=== PATIENT | female | born 1995 | race Caucasian/White ===

== ENCOUNTER → 2016-05-09 | Outpatient (CLI) | payer BC | END | disposition home or self-care (01) | LOC: C.LABSPEC 16:07 | PROVIDERS: ATTEND Obstetrics & Gynecology | DX: Z11.3 Encounter for screening for infections with a predominantly sexual mode of transmission (principal) ==

== ENCOUNTER → 2016-05-26 | Outpatient (CLI) | payer BC | END | disposition home or self-care (01) | LOC: C.PATHSPEC 10:09 | PROVIDERS: ATTEND Plastic Surgery | DX: D23.9 Other benign neoplasm of skin, unspecified (principal) ==

== ENCOUNTER 2017-01-17 12:57 | Emergency (ER) | payer BC ==
[~2017-01-17] VITALS: Ht 165.1 cm; Wt 58.7 kg
[2017-01-17 13:03] VITALS: TEMP 36.9; Ht 165.1 cm; Wt 58.7 kg
[2017-01-17] MEDS ORDERED: ONDANSETRON INJ 2 MG/ML 2 ML VIAL IV STA (13:31)
--- NOTE | 2017-01-17 14:01 | EMERGENCY ROOM VISIT NOTE ---
History First contact with patient: 13:11 Chief Complaint: FLANK PAIN Stated Complaint: L SIDE PAIN History of Present Illness The patient is a 21 year old female who presents to the Emergency Room with complaints of LLQ pain. -Pt says that the pain began about 1 hour ago. Pt says that the pain came on suddenly while lying in bed, beginning as a dull ache pain, 5/10 intensity -Pt says that the pain has since migrated to her suprapubic/pelvic region -Pt describes nausea and vomiting associated with the pain -Pt denies fevers and is afebrile in the ED today -Pt says that she has not had any burning with urination, but she does describe increased urgency since the pain began -Pt also remarks that her urine has been darker, but no brunilda blood -Pt denies any lesions or discharge from her vagina -Pt is sexually active with two partners over the past year. Pt has no concerns in regards to sexually transmitted diseases -Pt is currently on the depot shot, describes withdraw bleeding currently. Pt says that this is normal prior to receiving her next injection. -Pt last saw a access clerk in May and describes a normal pap smear. -Pt denies diarrhea or changes in bowel movements. No blood in her stool Review of Systems see below Constitutional: No fever, No chills, No sweats Respiratory: No cough, No sputum, No wheezing Cardiovascular: No chest pain, No edema, No palpitations Abdomen: + nausea, + vomiting, No pain, No diarrhea, No GI bleeding Genitourinary - Female: + urinary urgency, + vaginal bleeding, No dysuria, No urinary frequency, No urinary incontinence, No urinary retention, No hematuria Past Medical/Surgical History Medical Problems: (1) POTS (postural orthostatic tachycardia syndrome) Social History Smoking Status: Never Smoker Alcohol Use: none Drug Use: none Marital Status: single Housing Status: lives with family Occupation Status: student Current/Historical Medications No Active Prescriptions or Reported Meds Physical Exam Vital Signs Date Time Temp Pulse Resp B/P (MAP) Pulse Ox O2 Delivery O2 Flow Rate FiO2 01/17/17 16:38 62 16 124/76 98 Room Air 01/17/17 15:00 72 16 127/85 98 Room Air 01/17/17 13:03 36.9 67 16 113/71 98 Room Air Physical Exam see below General Appearance: WD/WN, no apparent distress Head: atraumatic Respiratory/Chest: chest non-tender, lungs clear, normal breath sounds, no respiratory distress Cardiovascular: regular rate, rhythm, no edema, no gallop, no JVD, no murmur Abdomen / GI: normal bowel sounds, soft, no organomegaly, no pulsatile mass , + pertinent finding (pt has suprapubic tenderness with deep and light palpation ) Genitourinary - Female: external genitalia normal, + pertinent finding ( Speculum exam showed cervical erythema/inflammation, scant blood, stringy yellowish discharge. ) Back: normal inspection, no CVA tenderness Medical Decision & Procedures ER Provider Diagnostic Interpretation: TRANSVAG-FEMALE PELVIS HISTORY: 21 years-old Female LLQ pain acute left lower quadrant abdominal pain COMPARISON: None available TECHNIQUE: Multiple real-time sonography images of the deep pelvic structures were obtained transabdominally and transvaginally assessing grayscale appearance, color and spectral flow FINDINGS: TRANSABDOMINAL: Endometrium measures 0.1 cm. Uterus measures 6.0 x 2.6 x 3.5 cm. Right ovary measures 3.0 x 3.2 x 1.4 cm with arterial inflow documented. Hypoechoic lesion of the right ovary is seen, 1.1 x 0.8 x 1.4 cm suggesting follicle. Left ovary measures 2.5 x 1.8 x 2.2 cm. Hypoechoic lesion of the left ovary is seen, 1.5 x 0.8 x 1.2 cm compatible with follicle. Arterial inflow documented within the left ovary. TRANSVAGINAL: Uterus measures 6.9 x 2.3 x 3.9 cm and is unremarkable. Endometrium measures 0.2 cm. No myometrial mass lesions identified. The right ovary measures 2.3 x 1.3 x 2.0 cm demonstrating arterial inflow. No right ovarian mass lesions identified. Follicles are noted. Left ovary measures 3.6 x 1.6 x 2.1 cm and is also within normal limits with follicles and arterial inflow documented. No adnexal mass lesions identified. There is no significant free pelvic fluid. IMPRESSION: 1. Unremarkable sonographic appearance of the bilateral ovaries without evidence of torsion or mass. 2. Normal sonographic appearance of the uterus and endometrium. The above report was generated using voice recognition software. It may contain grammatical, syntax or spelling errors. Electronically signed by: Tom Chirinos M.D. 01/17/2017 4:25 PM Dictated Date/Time: 01/17/2017 4:22 PM Laboratory Results 01/17/17 14:16 Red Blood Count 4.48, Mean Corpuscular Volume 88.2, Mean Corpuscular Hemoglobin 31.5, Mean Corpuscular Hemoglobin Concent 35.7, Mean Platelet Volume 11.2, Neutrophils (%) (Auto) 81.2, Lymphocytes (%) (Auto) 13.3, Monocytes (%) (Auto) 4.6, Eosinophils (%) (Auto) 0.5, Basophils (%) (Auto) 0.2, Neutrophils # (Auto) 6.53, Lymphocytes # (Auto) 1.07, Monocytes # (Auto) 0.37, Eosinophils # (Auto) 0.04, Basophils # (Auto) 0.02 01/17/17 14:16 Test 01/17/17 13:31 01/17/17 13:50 01/17/17 14:16 Urine Test NEG (NEG) Urine Color DK YELLOW Urine Appearance CLOUDY (CLEAR) Urine pH 5.0 (4.5-7.5) Urine Specific [place] 1.026 (1.000-1.030) Urine Protein 1+ (NEG) Urine Glucose (UA) NEG (NEG) Urine Ketones TRACE (NEG) Urine Occult Blood 3+ (NEG) Urine Nitrite NEG (NEG) Urine Bilirubin NEG (NEG) Urine Urobilinogen NEG (NEG) Urine Leukocyte Esterase TRACE (NEG) Urine WBC (Auto) 1-5 /hpf (0-5) Urine RBC (Auto) >30 /hpf (0-4) Urine Hyaline Casts (Auto) 5-10 /lpf (0-5) Urine Epithelial Cells (Auto) >30 /lpf (0-5) Urine Bacteria (Auto) NEG (NEG) White Blood Count 8.05 K/uL (4.8-10.8) Red Blood Count 4.48 M/uL (4.2-5.4) Hemoglobin 14.1 g/dL (12.0-16.0) Hematocrit 39.5 % (37-47) Mean Corpuscular Volume 88.2 fL (80-100) Mean Corpuscular Hemoglobin 31.5 pg (25-34) Mean Corpuscular Hemoglobin Concent 35.7 g/dl (32-36) Platelet Count 228 K/uL (130-400) Mean Platelet Volume 11.2 fL (7.4-10.4) Neutrophils (%) (Auto) 81.2 % Lymphocytes (%) (Auto) 13.3 % Monocytes (%) (Auto) 4.6 % Eosinophils (%) (Auto) 0.5 % Basophils (%) (Auto) 0.2 % Neutrophils # (Auto) 6.53 K/uL (1.4-6.5) Lymphocytes # (Auto) 1.07 K/uL (1.2-3.4) Monocytes # (Auto) 0.37 K/uL (0.11-0.59) Eosinophils # (Auto) 0.04 K/uL (0-0.5) Basophils # (Auto) 0.02 K/uL (0-0.2) RDW Standard Deviation 41.0 fL (36.4-46.3) RDW Coefficient of Variation 12.8 % (11.5-14.5) Immature Granulocyte % (Auto) 0.2 % Immature Granulocyte # (Auto) 0.02 K/uL (0.00-0.02) Anion Gap 10.0 mmol/L (3-11) Est Creatinine Clear Calc Drug Dose 89.7 ml/min Estimated GFR () 106.7 Estimated GFR (Non- 92.0 BUN/Creatinine Ratio 19.1 (10-20) Calcium Level 9.4 mg/dl (8.5-10.1) Total Bilirubin 1.1 mg/dl (0.2-1) Direct Bilirubin 0.2 mg/dl (0-0.2) Aspartate Amino Transf (AST/SGOT) 13 U/L (15-37) Alanine Aminotransferase (ALT/SGPT) 17 U/L (12-78) Alkaline Phosphatase 58 U/L (45-117) Total Protein 8.1 gm/dl (6.4-8.2) Albumin 4.6 gm/dl (3.4-5.0) Lipase 117 U/L (73-393) Medications Administered Medications (Trade) Dose Ordered Sig/Yaniv Route Start Time Stop Time Status Last Admin Dose Admin Ceftriaxone Sodium (Rocephin Im) 250 mg NOW ONCE IM 01/17/17 17:00 01/17/17 17:01 DC 01/17/17 17:07 250 MG Azithromycin (Zithromax Tab) 1,000 mg NOW ONCE PO 01/17/17 17:00 01/17/17 17:01 DC 01/17/17 17:07 1,000 MG ED Course 1415 History and physical performed 1430 Labs ordered for the patient. Pt refused antiemetic medications 1445 reaccessed patient, lab having trouble drawing blood 1515 bimanual exam and speculum exam performed 1534 pelvic USG ordered 1600 evaluated pt's USG, no abnormalities Medical Decision 21 female LLQ pain migrating to the suprapubic region. Considering the following differential: UTI, cystitis, pyelonephritis, nephrolithiasis, ovarian cyst, ovarian torsion, STI-vaginitis/cervicitis/PID, TOA Pt had normal CBC, BMP and lipase. UA showed >20 RBC's and trace LE. Speculum exam showed cervical erythema/inflammation, scant blood, stringy yellowish discharge. Bimanual exam provoked moderate tenderness and discomfort of the left adnexa. Because of tenderness elicited on exam, a pelvic USG was ordered. Pelvic USG dis not demonstrate signs of torsion or mass and was otherwise unremarkable. Based on exam, treating patient empirically for cervicitis: 1 g of Azithromycin PO, 250mg Ceftriaxone IM. Discussed results and findings with patient and discussed with patient to follow up closely with their PCP and access clerk. Impression Primary Impression: Cervicitis Departure Information Dispostion Home / Self-Care Condition GOOD Prescriptions No Active Prescriptions or Reported Meds Referrals No Doctor, Assigned (PCP) Patient Instructions [facility] Additional Instructions You came into the emergency department with left lower abdominal pain and pelvic pain. We did some labs and imaging that we determined to be normal. On physical exam, you were found to have inflammation of your cervix. With this, we decided to treat you for cervicitis, an infection of cervix. In the emergency room, we gave you 1 gram tablet of Azithromycin and 250mg injection of ceftriaxone. No other antibiotic treatment is needed at this time. We advise you to follow up with your primary care physician in the next week. If you develop fever or worsening abdominal pain, please follow up sooner.
[2017-01-17 14:11] LABS: MANUAL MICROSCOPIC REQUIRED? NO; REVIEW REQ? NO; URINE APPEARANCE CLOUDY (CLEAR); URINE COLOR DK YELLOW; URINE EPITHELIAL CELL AUTO >30 /lpf (0-5); URINE NITRITE NEG (NEG); URINE SPECIFIC GRAVITY 1.026 (1.000-1.030); UROBILINOGEN NEG (NEG)
[2017-01-17 14:13] LABS: URINE BILIRUBIN NEG (NEG)
[2017-01-17 14:29] LABS: BASO % 0.2 %; BASO ABS # 0.02 K/uL (0-0.2); COMPLETE YES; EOS % 0.5 %; HEMATOCRIT 39.5 % (37-47); IG% 0.2 %; LYMPH % 13.3 %; LYMPH ABS # 1.07 K/uL (1.2-3.4); MEAN CELL VOLUME 88.2 fL (80-100); MEAN CORPUSCULAR HEMOGLOBIN 31.5 pg (25-34); MEAN CORPUSCULAR HGB CONC 35.7 g/dl (32-36); MEAN PLATELET VOLUME 11.2 fL (7.4-10.4); MONO % 4.6 %; NEUT % 81.2 %; PLATELET COUNT 228 K/uL (130-400); RED BLOOD COUNT 4.48 M/uL (4.2-5.4); WHITE BLOOD COUNT 8.05 K/uL (4.8-10.8)
[2017-01-17 14:50] LABS: BUN/CREATININE RATIO 19.1 (10-20); CALCIUM 9.4 mg/dl (8.5-10.1); CREATININE 0.9 mg/dl (0.60-1.20); POTASSIUM 3.8 mmol/L (3.5-5.1)
[2017-01-17 15:29] LABS: PREG INTERNAL NEGATIVE QC NEG CLEAR BACKGROUND; PREG INTERNAL POSITIVE QC POS CONTROL LINE
--- NOTE | 2017-01-17 16:03 | EMERGENCY ROOM VISIT NOTE ---
ED Visit Note First contact with patient: 13:07 The patient was seen and examined with Dr. Wagner, resident physician. We discussed the case and treatments ordered, reviewed the results, and determine the disposition. Please refer to the resident's note for additional details. I have been directly involved with the management and disposition as well as independently evaluated the patient as documented in this note.\ Patient w/ LLQ/pelvic pain, upon assessment had resolved. No PMHx, no recent change in sexual partners. Recent normal BM. No urinary symptoms. Completed pelvic exam, noted redness/inflammed cervix w/ string-like yellow discharge w/ scant blood. Os closed. Neg CMT, no R adnexal TTP, mild L adnexal TTP. Trx'ed for cervicitis and had pelvic US completed. Neg for torsion, TOA, or cysts/ fibroids. Patient WBC WNL. AFVSS. UA w/ blood likely 2/2 to menstrual period. No urine bacteria noted. Deemed appropriate for outpatient f/u. Given rocephin and azithro prior to departure. D/c'ed to home.
--- NOTE | 2017-01-17 16:27 | DIAGNOSTIC IMAGING REPORT ---
TRANSVAG-FEMALE PELVIS HISTORY: 21 years-old Female LLQ pain acute left lower quadrant abdominal pain COMPARISON: None available TECHNIQUE: Multiple real-time sonography images of the deep pelvic structures were obtained transabdominally and transvaginally assessing grayscale appearance, color and spectral flow FINDINGS: TRANSABDOMINAL: Endometrium measures 0.1 cm. Uterus measures 6.0 x 2.6 x 3.5 cm. Right ovary measures 3.0 x 3.2 x 1.4 cm with arterial inflow documented. Hypoechoic lesion of the right ovary is seen, 1.1 x 0.8 x 1.4 cm suggesting follicle. Left ovary measures 2.5 x 1.8 x 2.2 cm. Hypoechoic lesion of the left ovary is seen, 1.5 x 0.8 x 1.2 cm compatible with follicle. Arterial inflow documented within the left ovary. TRANSVAGINAL: Uterus measures 6.9 x 2.3 x 3.9 cm and is unremarkable. Endometrium measures 0.2 cm. No myometrial mass lesions identified. The right ovary measures 2.3 x 1.3 x 2.0 cm demonstrating arterial inflow. No right ovarian mass lesions identified. Follicles are noted. Left ovary measures 3.6 x 1.6 x 2.1 cm and is also within normal limits with follicles and arterial inflow documented. No adnexal mass lesions identified. There is no significant free pelvic fluid. IMPRESSION: 1. Unremarkable sonographic appearance of the bilateral ovaries without evidence of torsion or mass. 2. Normal sonographic appearance of the uterus and endometrium. The above report was generated using voice recognition software. It may contain grammatical, syntax or spelling errors. Electronically signed by: Tom Chirinos M.D. 01/17/2017 4:25 PM Dictated Date/Time: 01/17/2017 4:22 PM
[2017-01-17 16:38] VITALS: BP 124/76; PULSE 62; O2SAT 98
[2017-01-17] MEDS ORDERED: CEFTRIAXONE SOD 350MG/ML 1 GM VIAL IM ONE (17:00)
[2017-01-17] MEDS ORDERED: AZITHROMYCIN 250 MG TAB PO ONE (17:00)
== END 2017-01-17 17:38 | disposition home or self-care (01) ==
LOC: C.EDB 12:58 → C.EDA 17:38
DX: N72 Inflammatory disease of cervix uteri (principal); Z79.3 Long term (current) use of hormonal contraceptives

== ENCOUNTER → 2017-05-15 | Outpatient (CLI) | payer OTHER | END | disposition home or self-care (01) | LOC: C.LABSPEC 11:15 | PROVIDERS: ATTEND Obstetrics & Gynecology | DX: N93.9 Abnormal uterine and vaginal bleeding, unspecified (principal) ==

== ENCOUNTER 2021-07-20 04:57 | Inpatient (IN) ==
[2021-07-20] MEDS ORDERED: OXYTOCIN 30 UNITS/500 ML BAG IV PRN (09:24)
--- NOTE | 2021-07-20 09:27 | Labor Progress Brief Note ---
Date of Service July 20, 2021 Subjective Patient has been observed on L&D for several hours due to increasingly painful contractions. Assessment & Plan (1) Normal labor: Plan: Admit for labor. GBS neg. Epidural upon request. Physical Exam Genitourinary: /-2 Bulging intact bag FHT Cat 1 [place] Q2 Results & Data ([facility]) Vital Signs (Past 12 Hours) Vital Signs Temp Pulse Resp BP 07/20/21 07:02 69 123/85 07/20/21 07:00 97.9 F 20 07/20/21 05:33 97.9 F 18 07/20/21 05:16 77 122/78 Coding Level of Care Code None Diagnoses Normal labor O80; Z37.9
[2021-07-20] MEDS: LACTATED RINGER'S 1,000 ML IV PRN ×3 (09:41→14:48)
[2021-07-20 10:11] LABS: Hematocrit (blood only) 34.4 % (37-47); Hemoglobin 11.5 g/dL (12.0-16.0); Mean Corpuscular Hemoglobin 29.4 pg (25-34); Mean Corpuscular Hgb Conc 33.4 g/dL (32-36); Mean Platelet Volume 12.1 fL (7.4-10.4); Platelet Count 188 K/uL (130-400); RDW Coefficient of Variation 13.4 % (11.5-14.5); RDW Standard Deviation 43.3 fL (36.4-46.3); Red Blood Count 3.91 M/uL (4.2-5.4); White Blood Count 10.99 K/uL (4.8-10.8)
[2021-07-20] MEDS ORDERED: NALBUPHINE HCL INJ 10 MG/ML AMP IV PRN (10:42)
[2021-07-20] MEDS ORDERED: NALOXONE HCL 0.4 MG/1 ML VIAL/CARP IV PRN ×2 (10:42→17:16)
[2021-07-20] MEDS ORDERED: fentaNYL 2MCG/ML ROPIVACAINE 1.25MG/ML 100 ML BAG EPI PRN (10:42)
[2021-07-20] MEDS ORDERED: NALOXONE HCL 1 MG in SODIUM CHLORIDE 0.9% 1000ML 1,000 ML IV PRN ×2 (10:42→17:16)
[2021-07-20] MEDS ORDERED: ePHEDrine sulfate 50 MG/ML AMP IV PRN ×2 (10:42→17:16)
[2021-07-20] MEDS ORDERED: ONDANSETRON INJ 2 MG/ML 2 ML VIAL IV PRN ×2 (10:42→17:16)
[2021-07-20] MEDS ORDERED: diphenhydrAMINE 50 MG/ML VIAL IV PRN ×2 (10:42→17:16)
[2021-07-20] MEDS ORDERED: ePHEDrine sulfate 50 MG/ML AMP ONE (11:03)
[2021-07-20] MEDS ORDERED: fentaNYL citrate 100 MCG/2 ML VIAL ONE (11:03)
[2021-07-20] MEDS ORDERED: BUPIVACAINE 0.25% 30 ML VIAL ONE (11:03)
[2021-07-20] MEDS ORDERED: SODIUM CHLORIDE 0.9% INJ 10 ML VIAL ONE (11:03)
[2021-07-20] MEDS ORDERED: fentaNYL 2MCG/ML ROPIVACAINE 1.25MG/ML 100 ML BAG EPI ONE (11:04)
--- NOTE | 2021-07-20 11:13 | Anesthesiology Consultation ---
Date of Service July 20, 2021 Assessment & Plan (1) Encounter for pre-operative examination: Chart Review Chart Review: Patient NOT seen in Pre Admission Testing and Acceptable Risk for Labor Epidural Consults Requested none History Height/Weight Height: 5 ft 5 in Weight: 71.214 kg Allergies Allergy/AdvReac Type Severity Reaction Status Date / Time aspirin Allergy Hives Verified 07/15/21 16:24 Medications Home Medications Medication Instructions Recorded Confirmed Last Taken fluoxetine 20 mg capsule 20 mg PO DAILY 12/10/20 07/20/21 07/12/21 08:00 vits no.124-ferrous fum 1 tab PO DAILY 04/21/21 07/20/21 07/19/21 08:00 27 mg iron-folic acid 800 mcg tablet ( Vitamin) Active Medications Generic Name Dose Route Start Last Admin Trade Name Freq PRN Reason Stop Dose Admin Lactated Ringer's 1,000 mls @ 125 mls/hr 07/20/21 09:24 07/20/21 11:29 Lr IV 07/22/21 09:23 999 mls/hr .Q8H PRN Administration L&D Protocol Protocol Past Medical History Medical History Dysmenorrhea Hx of menorrhagia Exercise / Class Metabolic Activity II 4-5 Yardwork/Stairs/Walk up hill Past Family History Family History Grandmother (Maternal) Breast cancer Cervical cancer Denies family history of Ovarian cancer Colorectal cancer Past Surgical History Surgical History H/O hand surgery History of colposcopy 2020, 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
--- NOTE | 2021-07-20 16:12 | Communication Note ---
Date of Service: July 20, 2021 Deceleration of heart tones noted. Patient examined. 6-7/100/0 FSE applied Heart tones steady in 40s External applied, confirms. US brought to room but unable to boot up successfully Patient knee-chest with temporary recovery of FHT however with next contraction, dipped back to 40s. Counseled patient on recommendation to move to given recurrent very deep decelerations without obvious explanation She accepts. Consent form brought to room and reviewed. FOB arrived in room just before consent process, signed as witness. Dr. Ha called from office to assist in STAT Dr. Canchola arrived promptly to provide anesthesia FHT did recover at least briefly to a normal rate prior to moving to OR
[2021-07-20] MEDS ORDERED: LIDOCAINE 2%/EPINEPHRINE 1:200,000 20 ML SDV ONE (16:14)
[2021-07-20] MEDS ORDERED: PHENYLEPHRINE HCL 10 MG/ML VIAL ONE (16:14)
[2021-07-20] MEDS ORDERED: OXYTOCIN 10 UNITS/ML 10ML VIAL ONE (16:14)
[2021-07-20] MEDS ORDERED: ONDANSETRON INJ 2 MG/ML 2 ML VIAL ONE (16:14)
[2021-07-20] MEDS ORDERED: LACTATED RINGER'S 1,000 ML IV SCH ×2 (16:15→18:28)
[2021-07-20] MEDS ORDERED: CITRIC ACID/SODIUM CITRATE 15 ML UDC PO SCH (16:15)
[2021-07-20] MEDS ORDERED: KETAMINE 50 MG/5 ML SYRINGE ONE (16:27)
[2021-07-20] MEDS ORDERED: MIDAZOLAM HCL 1 MG/ML 2ML VIAL ONE (16:28)
[2021-07-20] MEDS ORDERED: ceFAZolin 2000MG 2,000 MG/15 ML SYR IV SCH (16:30)
[2021-07-20] MEDS ORDERED: MoRPHine SULFATE PF 1 MG/ML 10 ML AMP/VIAL ONE (16:34)
--- NOTE | 2021-07-20 17:05 | Operative Report ---
PG Post Operative Report Pre & Post Diagnosis Operation Date: 07/20/21 16:00 Pre-Op Diagnosis: SIUP @ 38w5d Spontaneous onset of labor Nonreassuring heart tones. Post-Op Diagnosis: Same, plus thin umbilical cord with minimal [place] jelly and minimal coiling, wrapped x1 around body and neck I identified the patient and participated in the time-out.: Yes Procedure Operation Date: 07/20/21 16:00 Actual Procedures Primary Low Transverse Section Surgeon Araceli Hill MD [employer] Manager Dilcia Estimated Blood Loss 400 Findings Consistent with Post-Op Diagnosis Specimens Cord blood Placenta Anesthesia Type L&D Only Epidural Exists Complications none Disposition Accompanied Patient To Recovery: Yes Disposition: L&D Description of Procedure The patient was placed operating table in the supine position with a leftward tilt. She was prepped and draped in standard sterile fashion, with betadine due to STAT nature of the procedure. The anesthetic was tested and found to be adequate. A time-out was held, identifying correct patient, procedure, positioning and preoperative antibiotics. There were no concerns. The antibiotic was not given prior to incision as it had not yet arrived in the OR from pharmacy. It was given during the procedure. A Pfannenstiel skin incision was made with a knife and taken down to the underlying layer of fascia. The fascia was incised in the midline with the knife and taken out laterally with scissors. The superior edge of the fascial incision was grasped, elevated and dissected off the underlying rectus both superiorly and inferiorly. The muscles were bluntly in the midline. The peritoneum was entered bluntly. The incision was then stretched. The bladder retractor was placed. The vesicouterine peritoneum was identified and no bladder flap was felt to be required. A hysterotomy incision was created transversely in the lower uterine segment, final entry being accomplished in a blunt manner with the broaching machine operator's fingers. Clear amniotic fluid was encountered. The broaching machine operator's hand was used to elevate the head to the hysterotomy. The head was delivered using mild fundal pressure, and the shoulders and body followed without difficulty. The cord was clamped and cut and the was then handed off to the awaiting tie buyer. Cord blood was obtained. The placenta was Manually extracted. The uterus was exteriorized and cleared of all clot and debris with moistened laparotomy sponges. The hysterotomy incision was repaired in two layers, the first in a running locked layer, the second in an imbricating layer. The ovaries and tubes were seen to be normal bilaterally. The uterus was gently replaced in the abdomen, and the gutters were cleared of clot and debris. A final inspection of the hysterotomy revealed good hemostasis. The rectus muscles were allowed to reapproximate naturally. The fascia was then reapproximated with 1 Vicryl in a running nonlocked manner. The fascia was examined and found to be free of defect following closure. The subcutaneous tissue was reapproximated with 0-chromic, then the skin edges were closed with 4-0 monocryl in a subcuticular fashion. A dermabond dressing was applied. The banda was found to be draining clear yellow urine at completion of the procedure. I attest to the content of the Intraoperative Record and any orders documented therein. Any exceptions are noted below. I attest to the content of the Intraoperative Record and any orders documented therein. Any exceptions are noted below. OB Procedure Charges 68826
--- NOTE | 2021-07-20 17:13 | Anesthesiology Progress Note ---
Date of Service July 20, 2021 Anesthesia Post Procedure Vital Signs Vital Signs: Temp Pulse Resp BP Pulse Ox 07/20/21 17:08 89 95 07/20/21 17:05 88 115/61 07/20/21 17:03 77 100 07/20/21 16:16 70 92 07/20/21 16:15 67 108/65 07/20/21 16:14 72 100 07/20/21 16:13 71 107/66 07/20/21 16:10 79 87 L 07/20/21 16:09 75 93 07/20/21 16:05 81 87 L 07/20/21 16:04 93 H 100 07/20/21 15:59 86 88 L 07/20/21 15:54 68 97 07/20/21 15:53 66 92 07/20/21 15:49 76 100 07/20/21 15:45 60 95/53 L 07/20/21 15:44 65 97 07/20/21 15:41 75 90 07/20/21 15:39 77 100 07/20/21 15:34 64 100 07/20/21 15:33 75 94 07/20/21 15:30 86 20 99/58 L 07/20/21 15:29 70 92 07/20/21 15:27 74 90 07/20/21 15:24 76 100 07/20/21 15:19 88 100 07/20/21 15:15 68 95/56 L 07/20/21 15:14 59 L 100 07/20/21 15:09 65 100 07/20/21 15:06 97 H 92 07/20/21 15:04 64 100 07/20/21 15:01 85 99/57 L 07/20/21 15:00 36.5 C 07/20/21 14:59 63 100 07/20/21 14:54 75 100 07/20/21 14:53 68 90 07/20/21 14:49 69 100 07/20/21 14:47 77 89 L 07/20/21 14:45 64 115/67 07/20/21 14:44 64 100 07/20/21 14:39 66 100 07/20/21 14:37 97 H 93 07/20/21 14:34 76 100 07/20/21 14:30 66 122/68 07/20/21 14:29 65 100 07/20/21 14:24 75 100 07/20/21 14:19 71 100 07/20/21 14:17 81 94 07/20/21 14:16 68 114/56 L 07/20/21 14:14 79 100 07/20/21 14:09 66 100 07/20/21 14:04 67 100 07/20/21 14:00 67 20 115/65 07/20/21 13:59 78 100 07/20/21 13:54 72 100 07/20/21 13:49 63 100 07/20/21 13:46 78 91 07/20/21 13:45 71 110/64 07/20/21 13:44 66 100 07/20/21 13:39 73 100 07/20/21 13:34 59 L 100 07/20/21 13:31 64 106/64 07/20/21 13:30 20 07/20/21 13:29 63 100 07/20/21 13:24 67 100 07/20/21 13:19 70 100 07/20/21 13:15 68 113/71 07/20/21 13:14 71 100 07/20/21 13:09 64 100 07/20/21 13:04 67 100 07/20/21 13:00 64 18 116/72 07/20/21 12:59 68 100 07/20/21 12:54 65 100 07/20/21 12:49 70 100 07/20/21 12:45 70 118/73 07/20/21 12:44 72 100 07/20/21 12:39 71 100 07/20/21 12:34 70 100 07/20/21 12:31 64 118/71 07/20/21 12:29 80 100 07/20/21 12:24 65 100 07/20/21 12:19 71 100 07/20/21 12:15 62 107/58 L 07/20/21 12:14 66 100 07/20/21 12:09 62 100 07/20/21 12:04 58 L 100 07/20/21 11:59 88 96 07/20/21 11:55 67 109/55 L 07/20/21 11:54 64 100 07/20/21 11:50 68 111/57 L 07/20/21 11:49 69 100 07/20/21 11:48 68 111/59 L 07/20/21 11:44 82 100 07/20/21 11:40 62 110/62 07/20/21 11:39 72 100 07/20/21 11:38 72 106/63 07/20/21 11:36 76 117/73 07/20/21 11:34 74 113/63 100 07/20/21 11:32 67 111/66 07/20/21 11:30 67 118/67 07/20/21 11:29 73 100 07/20/21 11:28 69 118/80 07/20/21 11:26 75 116/80 07/20/21 11:24 79 99 07/20/21 11:23 75 93 07/20/21 11:19 89 100 07/20/21 11:17 82 113/76 07/20/21 11:14 89 100 07/20/21 07:02 69 123/85 07/20/21 07:00 36.6 C 20 07/20/21 05:33 36.6 C 18 07/20/21 05:16 77 122/78 Pain Intensity Bilateral Abdomen: Pain Intensity: 5 Transfer of Care Handoff Completed per policy Notes Mental Status: alert / awake / arousable and participated in evaluation Patient Amnestic to Procedure: No Nausea / Vomiting: adequately controlled Pain: adequately controlled Airway Patency, RR, SpO2: stable & adequate BP & HR: stable & adequate Hydration State: stable & adequate Neuraxial Anesthesia: was administered and sensory block is resolving Anesthetic Complications: no major complications apparent and Pt Satisfied with anesthetic care
--- NOTE | 2021-07-20 17:13 | Anesthesia Procedure Note ---
Date of Service July 20, 2021 Anesthesia Post Epidural Note Vital Signs Vital Signs: Temp Pulse Resp BP Pulse Ox 36.5 C 89 20 115/61 95 07/20/21 15:00 07/20/21 17:08 07/20/21 15:30 07/20/21 17:05 07/20/21 17:08 Pain Intensity Bilateral Abdomen: Pain Intensity: 5 Notes Mental Status: alert / awake / arousable and participated in evaluation Patient Amnestic to Procedure: No Nausea / Vomiting: adequately controlled Pain: adequately controlled Airway Patency, RR, SpO2: stable & adequate BP & HR: stable & adequate Hydration State: stable & adequate Neuraxial Anesthesia: was administered and sensory block is resolving Anesthetic Complications: no major complications apparent and Pt Satisfied with anesthetic care Epidural: Removed without complications and With tip intact
[2021-07-20] MEDS ORDERED: KETOROLAC 30 MG/ML VIAL IV PRN (17:16)
[2021-07-20] MEDS ORDERED: MoRPHine SULFATE 2 MG/ML CARP IV PRN (17:16)
[2021-07-20] MEDS ORDERED: NO NARCOTICS OR SEDATIVES SCH (17:16)
[2021-07-20] MEDS ORDERED: DC INTRASPINAL MORPHINE SCH (17:16)
[2021-07-20] MEDS ORDERED: SODIUM CHLORIDE 0.9% 1000ML 1,000 ML IV SCH (17:16)
[2021-07-20] MEDS ORDERED: MoRPHine SULFATE PF 1 MG/ML 10 ML AMP/VIAL EPI ONE (17:16)
[2021-07-20] MEDS ORDERED: NALOXONE HCL 0.08 MG in SYRINGE 1.8 ML IV PRN (17:16)
[2021-07-20] MEDS ORDERED: LACTATED RINGER'S 500 ML IV PRN (17:16)
[2021-07-20] MEDS ORDERED: SENNA 8.6 MG TAB PO PRN (18:28)
[2021-07-20] MEDS ORDERED: OXYTOCIN 30 UNITS in LACTATED RINGER'S 1,000 ML IV SCH (18:28)
[2021-07-20] MEDS ORDERED: MAGNESIUM HYDROXIDE SUSP 30 ML UDC PO PRN (18:28)
[2021-07-20] MEDS ORDERED: BENZOCAINE 20% AER SPR 82.5 GM CAN EXT PRN (18:28)
[2021-07-20] MEDS ORDERED: ACETAMINOPHEN 325 MG TAB PO PRN (18:28)
[2021-07-20] MEDS ORDERED: DIPHTHERIA/TETANUS/PERTUSSIS 0.5 ML SYR/VIAL IM ONE (18:28)
[2021-07-20] MEDS ORDERED: HYDROCORTISONE ACETATE 25 MG SUPP PR PRN (18:28)
[2021-07-20] MEDS: NALBUPHINE HCL INJ 10 MG/ML AMP IV PRN (21:01)
[2021-07-21] MEDS: NALBUPHINE HCL INJ 10 MG/ML AMP IV PRN ×2 (01:36→08:54)
--- NOTE | 2021-07-21 06:01 | Obstetrical Progress Note ---
Date of Service <Michelle ManoloDO - Last Filed: 07/21/21 06:54> July 21, 2021 Assessment & Plan <Michelleatiya French DO - Last Filed: 07/21/21 06:54> (1) Encounter for care and examination after delivery: 26 yo post op day1 from c/s [facility], doing well. -Continue routine post care. -vital signs reviewed and WNL (Tmax 36.8) -Blood Type O+, GBS-, Rubella immune -Encourage ambulation, monitor and control pain with Motrin, tylenol PRN, resume regular diet, monitor lochia -encourage breast feeding -hemoglobin 11.5 Day #:: 1 <Araceli Hill MD - Last Filed: 07/21/21 07:37> (1) Encounter for care and examination after delivery: Subjective <Michelle ManoloDO - Last Filed: 07/21/21 06:54> Ambulation: limited ambulation Voiding: banda catheter in place Passing Gas:: No Diet Tolerance:: regular diet Lochia:: Large Feeding Type:: breast feeding Current Pain Level(1-10): 0 Review of Systems Denies fever, chills, sweats Denies shortness of breath, difficulty breathing, chest pain, palpitations, chest pressure. Denies breast pain. Denies dysuria. Denies headache or changes in vision. Physical Exam <Michelle FrenchDO - Last Filed: 07/21/21 06:54> General: Alert, oriented. No acute distress. Cardiac: Regular rate and rhythm, no murmurs/rubs/gallops. Respiratory: Clear to auscultation bilaterally a/p, no wheezes/rales/rhonchi. No increased work of breathing. Symmetrical chest rise. No respiratory distress. Abdomen: Soft, nontender, nondistended. Bowel sounds present. Uterus: Uterine fundus firm, palpable at umbilicus. Surgical scar clean and healing well. Lower Extremities: No lower extremity edema or swelling. No deep calf pain. Lima's negative bilaterally. Results & Data ([facility]) <Michelle ManoloDO - Last Filed: 07/21/21 06:54> Vital Signs (Past 12 Hours) Vital Signs Temp Pulse Pulse Resp BP BP Pulse Ox 07/21/21 05:00 20 98 07/21/21 04:30 36.8 C 78 20 114/70 97 07/21/21 04:00 18 97 07/21/21 03:00 20 98 07/21/21 02:00 20 96 07/21/21 01:00 20 97 07/21/21 00:00 36.9 C 89 20 110/70 98 07/20/21 23:19 36.9 C 89 20 110/70 99 07/20/21 23:00 20 97 07/20/21 22:00 20 98 07/20/21 21:00 21 99 07/20/21 20:00 20 98 07/20/21 19:30 37.1 C 63 63 18 111/71 97 07/20/21 19:03 79 18 119/62 100 07/20/21 18:58 65 100 07/20/21 18:53 70 100 07/20/21 18:48 67 100 07/20/21 18:43 71 100 07/20/21 18:38 82 100 07/20/21 18:33 74 20 100 07/20/21 18:28 97 H 100 07/20/21 18:23 81 100 07/20/21 18:18 71 100 07/20/21 18:13 70 100 07/20/21 18:08 114 H 99 07/20/21 18:03 36.4 C L 111 H 20 99 07/20/21 18:02 108 H 137/66 <Araceli Hill MD - Last Filed: 07/21/21 07:37> Co-Signing Physician Notes Resident Physician Supervision Note: I interviewed and examined the patient. Discussed with Dr. French and agree with findings and plan as documented in the note. Any exceptions or clarifications are listed here: [ ] Documented By: Araceli Hill MD, FACOG Resident Activity Tracking <Michelle French DO - Last Filed: 07/21/21 06:54> Resident Involvement: Resident Care Provided Care Provided: Adult Hospital Medicine and OB Delivery
[2021-07-21 06:45] LABS: Basophils # (auto) 0.02 K/uL (0-0.2); Basophils % (auto) 0.2 %; Eosinophils # (auto) 0.04 K/uL (0-0.5); Eosinophils % (auto) 0.4 %; Hematocrit (blood only) 27.1 % (37-47); Hemoglobin 8.8 g/dL (12.0-16.0); Immature Granulocytes # (auto) 0.03 K/uL (0.00-0.02); Immature Granulocytes % (auto) 0.3 %; Lymphocytes # (auto) 2.02 K/uL (1.2-3.4); Lymphocytes % (auto) 18.9 %; Mean Corpuscular Hemoglobin 29.1 pg (25-34); Mean Corpuscular Hgb Conc 32.5 g/dL (32-36); Mean Corpuscular Volume 89.7 fL (80-100); Mean Platelet Volume 12.1 fL (7.4-10.4); Monocytes # (auto) 0.76 K/uL (0.11-0.59); Monocytes % (auto) 7.1 %; Neutrophils % (auto) 73.1 %; Platelet Count 158 K/uL (130-400); RDW Coefficient of Variation 13.5 % (11.5-14.5); RDW Standard Deviation 44.6 fL (36.4-46.3); Red Blood Count 3.02 M/uL (4.2-5.4); White Blood Count 10.67 K/uL (4.8-10.8)
[2021-07-21] MEDS: PRENATAL VITAMIN 1 TAB PO SCH (08:46)
[2021-07-21] MEDS: SIMETHICONE 80 MG CHEW PO SCH ×4 (08:46→19:48)
[2021-07-21] MEDS: FERROUS SULFATE 325 MG TAB PO SCH (08:46)
[2021-07-21] MEDS: DOCUSATE SODIUM 100 MG CAP PO SCH ×3 (08:46→20:18)
[2021-07-21] MEDS ORDERED: ONDANSETRON INJ 2 MG/ML 2 ML VIAL IV PRN (10:00)
[2021-07-21] MEDS ORDERED: PROMETHAZINE HCL 25 MG in SODIUM CHLORIDE 0.9% 50 ML IV PRN (10:00)
[2021-07-21] MEDS ORDERED: diphenhydrAMINE 50 MG/ML VIAL IV PRN (10:00)
[2021-07-21] MEDS ORDERED: diphenhydrAMINE Capsule 25 MG CAP PO PRN (10:00)
[2021-07-21] MEDS: FLUoxetine HCL 20 MG CAP PO SCH (11:09)
[2021-07-21] MEDS: oxyCODONE/ACETAMINOPHEN 5mg/325mg TAB PO PRN ×3 (14:35→23:24)
[2021-07-21] MEDS ORDERED: bisacodyL 5 MG TABEC PO SCH (20:00)
[2021-07-22] MEDS: oxyCODONE/ACETAMINOPHEN 5mg/325mg TAB PO PRN ×2 (03:21→08:23)
--- NOTE | 2021-07-22 06:04 | Obstetrical Progress Note ---
Date of Service <Michelle French - Last Filed: 07/22/21 07:12> July 22, 2021 Assessment & Plan <Michelle ManoloDO - Last Filed: 07/22/21 07:12> (1) Encounter for care and examination after delivery: 26 yo post op day2 from c/s [facility], doing well. -Continue routine post care. -vital signs reviewed and WNL (Tmax 36.9) -Blood Type O+, GBS-, Rubella immune -Encourage ambulation, monitor and control pain with Motrin, tylenol PRN, resume regular diet, monitor lochia -encourage breast feeding -hemoglobin 11.5 Day #:: 2 <Jacy Ha MD - Last Filed: 07/22/21 08:02> (1) Encounter for care and examination after delivery: Subjective <Michelle French - Last Filed: 07/22/21 07:12> Ambulation: ambulating normally Voiding: no voiding problems Passing Gas:: Yes Diet Tolerance:: regular diet Lochia:: Small Feeding Type:: breast feeding Current Pain Level(1-10): 0 Review of Systems Denies fever, chills, sweats Denies shortness of breath, difficulty breathing, chest pain, palpitations, chest pressure. Denies breast pain. Denies dysuria. Denies headache or changes in vision. Physical Exam <Michelle French - Last Filed: 07/22/21 07:12> General: Alert, oriented. No acute distress. Cardiac: Regular rate and rhythm, no murmurs/rubs/gallops. Respiratory: Clear to auscultation bilaterally a/p, no wheezes/rales/rhonchi. No increased work of breathing. Symmetrical chest rise. No respiratory distress. Abdomen: Soft, nontender, nondistended. Bowel sounds present. Uterus: Uterine fundus firm, palpable at umbilicus. Surgical scar clean and healing well. Lower Extremities: No lower extremity edema or swelling. No deep calf pain. Lima's negative bilaterally. Results & Data ([facility]) <Michelle FrenchDO - Last Filed: 07/22/21 07:12> Vital Signs (Past 12 Hours) Vital Signs Temp Pulse Resp BP Pulse Ox 07/21/21 23:10 36.8 C 78 16 106/67 99 07/21/21 19:40 36.7 C 82 16 99/62 L 98 <Jacy Ha MD - Last Filed: 07/22/21 08:02> Co-Signing Physician Notes Resident Physician Supervision Note: I interviewed and examined the patient. Discussed with Dr. French and agree with findings and plan as documented in the note. Any exceptions or clarifications are listed here: POD2 from [facility], doing well. VSS, exam benign and wnl, incision c/d/i. Desires d/c home today, meeting all pp milestones Documented By: Jacy Ha MD Resident Activity Tracking <Michelle French DO - Last Filed: 07/22/21 07:12> Resident Involvement: Resident Care Provided Care Provided: Adult Hospital Medicine and OB Delivery
[2021-07-22 07:51] LABS: Hematocrit (blood only) 28.6 % (37-47); Hemoglobin 9.4 g/dL (12.0-16.0)
[2021-07-22] MEDS: FERROUS SULFATE 325 MG TAB PO SCH (08:23)
[2021-07-22] MEDS: DOCUSATE SODIUM 100 MG CAP PO SCH (08:23)
[2021-07-22] MEDS: SIMETHICONE 80 MG CHEW PO SCH (08:23)
[2021-07-22] MEDS: PRENATAL VITAMIN 1 TAB PO SCH (08:23)
[2021-07-22] MEDS: FLUoxetine HCL 20 MG CAP PO SCH (08:24)
[2021-07-22] MEDS ORDERED: bisacodyL 10 MG SUPP PR PRN (16:59)
--- NOTE | 2021-07-24 13:07 | Discharge Summary ---
Date of Service July 24, 2021 Discharge Data Consultations 07/20/21 09:24 Consult Anesthesiology Stat Procedures Performed Operation Date: 07/20/21 16:00 Actual Procedures p Section in LDdelivery of live male child at 1630 - Araceli Hill MD Hospital Course (1) Encounter for care and examination after delivery: 26 yo post op day2 from c/s [facility] [place], doing well. -Continue routine post care. -vital signs reviewed and WNL (Tmax 36.9) -Blood Type O+, GBS-, Rubella immune -Encourage ambulation, monitor and control pain with Motrin, tylenol PRN, resume regular diet, monitor lochia -encourage breast feeding -hemoglobin 11.5 Coding Level of Care Code None Diagnoses Encounter for care and examination after delivery Z39.2
== END 2021-07-22 14:55 | disposition home or self-care (01) | DRG 788 ==
LOC: OPB 04:57 → 4S1 05:04 → 4E2 19:30